=== PATIENT | female | born 1970 | race American Indian/Alaskan Native ===

== ENCOUNTER 2018-07-29 09:45 | Inpatient (IN) | payer BC ==
[2018-07-22 09:12] VITALS: BMI 29.5
[2018-07-29] MEDS ORDERED: ceFAZolin IV 1 gm in Dextrose 2 GM/100 ML BAG IVPB ONE (12:06)
[2018-07-29] MEDS ORDERED: Bacitracin Ointment 30 GM TUBE ONE (12:06)
[2018-07-29] MEDS ORDERED: Rocuronium 10 mg/ml (5 ml) ONE (12:38)
[2018-07-29] MEDS ORDERED: Midazolam 2 MG/2 ML VIAL ONE (12:39)
[2018-07-29] MEDS ORDERED: Propofol 10 mg/ml Inj (20 ML) ONE (12:39)
[2018-07-29] MEDS ORDERED: Succinylcholine Chloride 20 mg/ml Syr (5 ml) IV ONE (12:40)
[2018-07-29] MEDS ORDERED: Neostigmine Methylsulfate 3mg/3ml Syringe IV ONE (14:35)
[2018-07-29] MEDS ORDERED: Dexamethasone 4 mg/1 ml IVP PRN (14:52)
[2018-07-29] MEDS: HYDROmorphone 0.5 mg/0.5 ml ISec IVP PRN ×4 (15:09→16:00)
[2018-07-29] MEDS ORDERED: Lactated Ringer's 1,000 ML IV SCH (15:30)
[2018-07-29] MEDS ORDERED: Ergocalciferol 50,000 Intl Units Cap PO SCH (15:30)
--- NOTE | 2018-07-29 15:36 | PCM.OP ---
Operative Report - Operative Report Date of Surgery/Procedure: 07/29/18 Time of Surgery/Procedure: 13:30 Surgeon: Dr. maria Assembler Corncob Pipes: Dr. Gonzalez Anesthesia/Sedation: Dr. Stephenson/ Pre-Operative Diagnosis: Fibroid Uterus, Multiple. Severe Anemia. Left Ovarian Cyst, Multiple Post-Operative Diagnosis: Same Indication for Surgery: Multiple. Fibroid Uterus. Severe anemia Operative Findings: Uterus: Enlarged to 14 Weeks size with Multiple fibroids. Multiple cyst , Left Ovary Procedure/Operation Description: Supracervical Hysterectomy. Bilateral Salpingo-Oophorectomy. Vertical midline incision Estimated Blood Loss: 150 CC Complications: None Discharge & Condition: Satisfactory
[2018-07-29] MEDS ORDERED: Dextrose 5%/Lactated Ringer's 1,000 ML IV SCH (17:45)
[2018-07-29] MEDS: Oxycodone/Acetaminophen 5/325 mg Tab PO PRN ×2 (17:50→22:57)
[2018-07-29] MEDS: ceFAZolin IV 1 gm in Dextrose 1 GM/50 ML BAG IVPB SCH (23:05)
[2018-07-30] MEDS: Levothyroxine 25 MCG TAB PO SCH (06:32)
[2018-07-30 08:52] LABS: HEMOGLOBIN 11.9 g/dL (11.0-16.0); MEAN CELL VOLUME 80.6 fL (81.0-99.0); MEAN CORPUSCULAR HEMOGLOBIN 26.6 pg (27.0-31.0); MEAN PLATELET VOLUME 9.4 fL (7.2-11.7); RBC 4.49 Mil/uL (3.80-5.20); RED CELL DISTRIBUTION WIDTH 22.2 % (11.5-14.5); WHITE BLOOD COUNT 9.8 K/uL (4.8-10.8)
[2018-07-30] MEDS ORDERED: FERROUS FUMARATE PO SCH (10:00)
[2018-07-30] MEDS ORDERED: ASCORBIC ACID PO SCH (10:00)
[2018-07-30] MEDS ORDERED: Home Med 1 UNIT (Lubiprostone [Amitiza] 24 MCG) PO SCH (10:00)
[2018-07-30] MEDS: ceFAZolin IV 1 gm in Dextrose 1 GM/50 ML BAG IVPB SCH (10:30)
[2018-07-30] MEDS ORDERED: Enoxaparin 30 mg Syringe SC SCH ×3 (15:27→22:00)
[2018-07-30 16:36] VITALS: RESP 20
[2018-07-30] MEDS: Oxycodone/Acetaminophen 5/325 mg Tab PO PRN ×2 (16:48→21:58)
[2018-07-30] MEDS ORDERED: Simethicone 80 mg Chewtab PO SCH (18:00)
--- NOTE | 2018-07-30 19:12 | CP.PCM.PN ---
Subjective - Date & Time of Evaluation Date of Evaluation: 07/30/18 Time of Evaluation: 19:10 - Subjective Subjective: POD #1 No C/O except Slight Right shoulder VS Stable Abdomen Soft Wound Clean P: Advance Diet Home in AM Objective - Vital Signs/Intake and Output Vital Signs (last 24 hours): Temp Pulse Resp BP Pulse Ox 97.7 F 71 20 146/85 99 07/30/18 16:30 07/30/18 16:30 07/30/18 16:30 07/30/18 16:30 07/30/18 16:30 Intake and Output: 07/30/18 07/31/18 18:59 06:59 Intake Total 25 Balance 25 - Medications Medications: Current Medications Enoxaparin Sodium (Lovenox) 30 mg SC 1600 [facility] Last Admin: 07/30/18 16:47 Dose: 30 mg Folic Acid (Folic Acid) 1 mg PO DAILY [facility] Last Admin: 07/30/18 10:30 Dose: 1 mg Lactated Ringer's (Lactated Ringer's) 1,000 mls @ 125 mls/hr IV .Q8H [facility] Last Admin: 07/30/18 11:02 Dose: 125 mls/hr Dextrose/Lactated Ringer's (Dextrose 5%/Lactated Ringer's) 1,000 mls @ 125 mls/hr IV .Q8H [facility] Last Admin: 07/29/18 18:10 Dose: 125 mls/hr Levothyroxine Sodium (Synthroid) 25 mcg PO DAILY@0630 [facility] Last Admin: 07/30/18 06:32 Dose: 25 mcg Ondansetron HCl (Zofran Inj) 4 mg IVP ONCE PRN PRN Reason: Nausea/Vomiting Oxycodone/Acetaminophen (Percocet 5/325 Mg Tab) 1 tab PO Q4 PRN PRN Reason: Pain, moderate (4-7) Stop: 08/01/18 15:17 Last Admin: 07/30/18 16:48 Dose: 1 tab Simethicone (Mylicon Chew Tab) 80 mg PO TID [facility] Spironolactone (Aldactone) 50 mg PO BID [facility] Last Admin: 07/30/18 10:30 Dose: 50 mg - Labs Labs: 07/30/18 08:42
--- NOTE | 2018-07-30 19:20 | CP.PCM.DIS ---
Provider - Provider Date of Admission: 07/29/18 15:15 Attending physician: Ger Multani MD Primary care physician: Jay Lott MD Time Spent in preparation of Discharge (in minutes): 10 Hospital Course - Lab Results Lab Results: Most Recent Lab Values WBC 9.8 K/uL (4.8-10.8) D 07/30/18 08:42 RBC 4.49 Mil/uL (3.80-5.20) 07/30/18 08:42 Hgb 11.9 g/dL (11.0-16.0) 07/30/18 08:42 Hct 36.2 % (34.0-47.0) 07/30/18 08:42 MCV 80.6 fL (81.0-99.0) L 07/30/18 08:42 MCH 26.6 pg (27.0-31.0) L 07/30/18 08:42 MCHC 33.0 g/dL (33.0-37.0) 07/30/18 08:42 RDW 22.2 % (11.5-14.5) H 07/30/18 08:42 Plt Count 208 K/uL (130-400) 07/30/18 08:42 MPV 9.4 fL (7.2-11.7) 07/30/18 08:42 Blood Type O POSITIVE 07/29/18 11:11 Antibody Screen Negative 07/29/18 11:11 Discharge Plan - Follow Up Plan Condition: GOOD Disposition: HOME/ ROUTINE Referrals: Jay Lott MD [Primary Care Provider] -
[2018-07-31] MEDS: Oxycodone/Acetaminophen 5/325 mg Tab PO PRN ×2 (02:40→08:25)
[2018-07-31] MEDS: Levothyroxine 25 MCG TAB PO SCH (06:34)
[2018-07-31 08:51] VITALS: BP 135/82; PULSE 78; TEMP 97; O2SAT 99
--- NOTE | 2018-08-04 06:13 | OP ---
PROCEDURE DATE: 07/29/2018 NATURE OF OPERATION: Supracervical hysterectomy with bilateral salpingo-oophorectomy. ATTENDING/OPERATING SURGEON: Ger Multani MD RETAIL STORE ASSOCIATE: Sanju Gonzalez MD MANUFACTURING SYSTEMS ENGINEER: Dr. Stephenson. KIND OF ANESTHESIA: General. PREOPERATIVE DIAGNOSES: Multiple fibroid uterus, severe anemia, and multiple left ovarian cysts. POSTOPERATIVE DIAGNOSES: Multiple fibroid uterus, severe anemia, and multiple left ovarian cysts. ESTIMATED BLOOD LOSS: 150 mL. FINDINGS: The uterus was enlarged to a 14-week size of with multiple fibroids of varying sizes. The left ovary revealed multiple cysts. The right adnexa appears to be intact. DESCRIPTION OF PROCEDURE: Under general anesthesia, the patient was placed in supine position. Routine prep was done, and the anterior abdominal wall was draped. The abdominal cavity was entered through a vertical midline incision. The pelvic organs were palpated and visualized. A self-retaining retractor was placed in the abdominal cavity, and the bowel loops were packed away using wet gauze pack. The uterus was grasped with the tenaculum forceps and lifted up. The round ligaments were clamped, cut and ligated with a 0 Vicryl suture ligature bilaterally. The uterovesical fold of peritoneum was opened. The bladder was pushed downwards gently using sponge sticks. The index finger was pushed bluntly through the avascular part of broad ligament, perforating its posterior layer close to the uterus below the level of attachment of round ligament, fallopian tube, and utero-ovarian ligament. Through this hole, two Nancy clamps were applied clamping the ovarian ligament on the left side. This was cut between the two clamps and suture ligatured with 0 Vicryl suture was placed, and then free 0 Vicryl tie was placed on the lateral thumb. The procedure was repeated on the right side. The posterior peritoneal reflection was incised, and the uterine vessels were skeletonized. The uterine vessels were clamped with Phaneuf clamps bilaterally, cut and ligated with a 0 Vicryl suture ligature. The bladder was further pushed downwards by sponge forceps, and the cardinal ligaments on each side together with the vascular plexus clamped close to the lateral border of the cervix. They were divided and ligated with a 0 Vicryl suture ligature. There was a large fibroid was noted on the posterior lower uterine segment close to the cervix. The abdominal myomectomy was done and the supracervical hysterectomy then done, and on the cervix, the figure of eight stitches were put on closing the cervical canal after they electrocauterizing the endocervical canal. At this point, since there were multiple left ovarian cysts, the left adnexa was clamped and excised, and the right adnexa, there was some oozing of blood, so at this point, we did bilateral salpingo-oophorectomy. The right adnexa also clamped with Nancy clamps and suture ligated. At this point, the hemostasis was satisfactory. The pelvic cavity was cleaned of blood and blood clots, and complete hemostasis was ensured. Closure was then started. The peritoneum was closed with 0 Chromic catgut continuous stitch. The continuous interlocking stitches of 0 Vicryl were used for fascia, and the interrupted #2-0 plain catgut was used for subcutaneous tissue, and the skin was closed with the zina. The patient tolerated the procedure well and was transferred to recovery room in satisfactory condition. Ger Multani MD
== END 2018-07-31 11:40 | disposition home or self-care (01) | DRG 743 ==
LOC: C.9S 09:45 → UNDOADMIN 09:45 → C.9S 15:15 → C.4M 17:29 → C.9S 17:29
PROVIDERS: ADMIT Obstetrics & Gynecology Gynecology; ATTEND Obstetrics & Gynecology Gynecology
PROC: 0UT20ZZ Resection of Bilateral Ovaries, Open Approach (ICD-10-PCS; 2018-07-29)
PROC: 0UT70ZZ Resection of Bilateral Fallopian Tubes, Open Approach (ICD-10-PCS; 2018-07-29)
PROC: 0UT90ZL Resection of Uterus, Supracervical, Open Approach (ICD-10-PCS; principal; 2018-07-29 12:00)
DX: D25.1 Intramural leiomyoma of uterus (principal); D50.0 Iron deficiency anemia secondary to blood loss (chronic); N83.202 Unspecified ovarian cyst, left side

== ENCOUNTER 2018-08-13 01:53 | Emergency (ER) | payer BC ==
[2018-08-13 01:54] VITALS: BMI 29.5
[2018-08-13 02:27] VITALS: TEMP 98.1
--- NOTE | 2018-08-13 02:36 | C.PDOC ---
History Of Present Illness 47 y/o F c PSHx hysterectomy 3 weeks ago p/w chest pain x 3 days. Pain is sharp, L parasternal, focal area, exacerbated by palpation or deep breath, feels short of breath especially when talking too much. Denies fever, cough, hemoptysis, current leg edema, injury, hormone use. Time Seen by Provider: 08/13/18 02:25 Chief Complaint (Nursing): Chest Pain Past Medical History Vital Signs: Last Vital Signs Temp 98.1 F 08/13/18 01:57 Pulse 70 08/13/18 01:57 Resp 14 08/13/18 01:57 BP 132/85 08/13/18 01:57 Pulse Ox 99 08/13/18 01:57 - Medical History PMH: Anemia (iron transfusion/last 2 weeks ago), HTN, Hypothyroidism Denies: Chronic Kidney Disease - [facility] Procedures (07/29/18) RESECTION OF BILATERAL FALLOPIAN TUBES, OPEN APPROACH (07/29/18) RESECTION OF BILATERAL OVARIES, OPEN APPROACH (07/29/18) Family History: States: No Known Family Hx - Social History Hx Alcohol Use: No Hx Substance Use: No - Immunization History Hx Tetanus Toxoid Vaccination: No Hx Influenza Vaccination: No Hx Pneumococcal Vaccination: No Review Of Systems Except As Marked, All Systems Reviewed And Found Negative. Constitutional: Negative for: Fever Gastrointestinal: Negative for: Vomiting Physical Exam - Physical Exam Additional Physical Exam Comments: Constitutional: No acute distress. Head: Normocephalic. Atraumatic. Eyes: PERRL. ENT: Moist mucous membranes. Neck: Supple. Cardiovascular: Regular rate. Radial pulse 2+ bilaterally. Chest: Reproducible chest tenderness. Respiratory: Clear to auscultation bilaterally. GI: Soft. Nontender. Nondistended. Back: No CVA tenderness. Musculoskeletal: No tenderness or swelling of extremities. Skin: No rash. Neurologic: Alert, no focal deficit. ED Course And Treatment - Laboratory Results Result Diagrams: 08/13/18 02:42 08/13/18 02:42 O2 Sat by Pulse Oximetry: 99 Medical Decision Making Medical Decision Making: EKG NSR 63 bpm, no ST/T wave changes. Well's score 1.5, low probability. D dimer sent. CTA IMPRESSION: No evidence of PE. RLL and LLL bibasilar opacities are noted compatible with multifocal pneumonia. Patient feels well. CURB65 score 0. Patient states just started on Augmentin and has taken 1 dose so far. Would prefer to try outpatient treatment and has PMD follow up in 2 days. Discharged home, instructed to return to ED immediately for development of fever, dyspnea, cough. Disposition - Disposition Disposition: HOME/ ROUTINE Disposition Time: 05:15 Condition: STABLE Instructions: Costochondritis (DC) Forms: [employer] (Czech) - Clinical Impression Clinical Impression: Costochondritis
[2018-08-13 02:46] LABS: BASO # 0.1 K/uL (0.0-0.2); BASO % 0.9 % (0.0-2.0); EOS # 0.2 K/uL (0.0-0.7); HEMOGLOBIN 12.2 g/dL (11.0-16.0); LYMPH # 1.9 K/uL (1.0-4.3); LYMPH % 28.4 % (20.0-40.0); MEAN CELL VOLUME 81.5 fL (81.0-99.0); MEAN CORPUSCULAR HEMOGLOBIN 26.6 pg (27.0-31.0); MEAN CORPUSCULAR HGB CONC 32.6 g/dL (33.0-37.0); MEAN PLATELET VOLUME 8.3 fL (7.2-11.7); MONO # 0.5 K/uL (0.0-0.8); MONO % 7.6 % (0.0-10.0); NEUT # 4.1 K/uL (1.8-7.0); NEUT % 60.1 % (50.0-75.0); RBC 4.58 Mil/uL (3.80-5.20); RED CELL DISTRIBUTION WIDTH 18.4 % (11.5-14.5); WHITE BLOOD COUNT 6.8 K/uL (4.8-10.8)
[2018-08-13 02:56] LABS: BLOOD UREA NITROGEN 16 mg/dL (7-17); CALCIUM 9.6 mg/dl (8.6-10.4); GFR NON-AFRICAN AMERICAN > 60
[2018-08-13 02:58] LABS: ALB/GLOB RATIO 1.3 (1.0-2.1); ALBUMIN 4.3 g/dL (3.5-5.0); ALT/SGPT 36 U/L (9-52); AST/SGOT 36 U/L (14-36)
[2018-08-13 03:09] LABS: CK-MB < 0.22 ng/mL (0.0-3.38)
[2018-08-13] MEDS ORDERED: Iodixanol 320 mg/ml 150 ml Bottle IV ONE (03:31)
[2018-08-13 05:46] VITALS: BP 113/76; PULSE 82; RESP 18; O2SAT 97
--- NOTE | 2018-08-13 09:05 | RAD ---
Date of service: 08/13/2018 HISTORY: chest pain COMPARISON: No prior. FINDINGS: LUNGS: Early patchy infiltrate suspected at the lateral left base with remaining lung muhammad clear. Left hemidiaphragm appears elevated mildly. Etiology indeterminate. PLEURA: No significant pleural effusion identified, no pneumothorax apparent. CARDIOVASCULAR: No aortic atherosclerotic calcification present. Normal cardiac size. No pulmonary vascular congestion. OSSEOUS STRUCTURES: No significant abnormalities. VISUALIZED UPPER ABDOMEN: Normal. OTHER FINDINGS: None. IMPRESSION: Early infiltrate suspected left base. Left hemidiaphragm mildly elevated.
--- NOTE | 2018-08-13 11:15 | CT ---
Date of service: 08/13/2018 PROCEDURE: CT Chest with contrast (Pulmonary Angiogram) HISTORY: chest pain, r/o pe COMPARISON: Portable chest 08/13/2018. TECHNIQUE: Axial computed tomography images were obtained of the chest in the pulmonary arterial phase of enhancement. Coronal and sagittal reformatted images were created and reviewed. Intravenous contrast dose: Visipaque 320, 100 cc Radiation dose: Total exam DLP = 490.26 mGy-cm. This CT exam was performed using one or more of the following dose reduction techniques: Automated exposure control, adjustment of the mA and/or kV according to patient size, and/or use of iterative reconstruction technique. FINDINGS: PULMONARY ARTERIES: Unremarkable. No pulmonary embolism. AORTA: No acute findings. No thoracic aortic aneurysm. No aortic atherosclerotic calcification or mural plaque present. LUNGS: No definite acute infiltrate bilaterally. Limited the atelectatic favored over pneumonitis changes are seen the bilateral dependent bases. No discrete mass including central airways. PLEURAL SPACES: Trace follow-up pleural effusion identified. No pneumothorax bilaterally. HEART: Unremarkable. No cardiomegaly. No significant pericardial effusion. LYMPH NODES: No lymphadenopathy. BONES, CHEST WALL: Unremarkable. No fracture or destructive lesion OTHER FINDINGS: Unremarkable. IMPRESSION: Limited the atelectatic favored over pneumonitis changes are seen the bilateral dependent bases. No CT evidence of pulmonary embolus.
--- NOTE | 2018-08-15 12:56 | CARD ---
APPROVED REPORT Date of service: 08/13/2018 EKG Measurement Heart [id number] <Conclusion> Normal sinus rhythm Normal ECG
== END 2018-08-13 05:41 | disposition home or self-care (01) ==
LOC: C.ER 01:53
DX: M94.0 Chondrocostal junction syndrome [Tietze] (principal)
CPT/HCPCS: 71045; 71275; 80053; 82550; 82553; 84484; 85025; 85378; 93005; 96374; 99285; J1885; Q9967